=== PATIENT | female | born 1945 | race Caucasian/White ===

== ENCOUNTER 2019-12-31 10:30 | Inpatient (IN) | payer MEDICARE ==
[~2019-12-31] VITALS: Ht 157.5 cm; Wt 114.0 kg
[2019-12-31 10:53] LABS: BASOPHILS # (AUTO) 0.1 X10'3 (0-0.2); BASOPHILS % (AUTO) 0.5 % (0-1); EOSINOPHILS # (AUTO) 0.2 X10'3 (0-0.9); EOSINOPHILS % (AUTO) 2.3 % (0-6); HEMATOCRIT 39.5 % (35.0-45.0); HEMOGLOBIN 13.3 g/dl (12.0-16.0); LYMPHOCYTES # (AUTO) 2.8 X10'3 (1.1-4.8); LYMPHOCYTES % (AUTO) 27.2 % (21-51); MEAN CORPUSCULAR HGB CONC 33.6 g/dL (33.0-36.5); MEAN CORPUSCULAR VOLUME 89.2 FL (78-98); MEAN PLATELET VOLUME 8.7 FL (7.4-10.4); MONOCYTES # (AUTO) 0.6 X10'3 (0-0.9); MONOCYTES % (AUTO) 6.1 % (2-12); NEUTROPHILS # (AUTO) 6.7 X10'3 (1.8-7.7); NEUTROPHILS % (AUTO) 63.9 % (42-75); PLATELET COUNT 236 X10'3 (140-440); RED BLOOD COUNT 4.43 X10'6 (4.20-5.60); RED CELL DISTRIBUTION WIDTH 12.8 % (11.5-14.5); WHITE BLOOD COUNT 10.4 X10'3 (4.5-11.0)
[2019-12-31 11:03] LABS: ALANINE AMINOTRANSFERASE 28 U/L (12-78); ALBUMIN 3.7 G/DL (3.4-5.0); ALBUMIN/GLOBULIN RATIO 0.9 (1.1-1.5); ALKALINE PHOSPHATASE 68 IU/L (46-116); ANION GAP 9 (8-16); ASPARTATE AMINO TRANSFERASE 21 U/L (10-37); BILIRUBIN,TOTAL 0.3 MG/DL (0.1-1.0); BLOOD UREA NITROGEN 15 MG/DL (7-18); BUN/CREATININE RATIO 16.7 (6.6-38.0); CHLORIDE 104 MMOL/L (99-107); GLUCOSE 109 MG/DL (70-104); POTASSIUM 4.1 MMOL/L (3.5-5.1); SODIUM 140 MMOL/L (135-145); TOTAL PROTEIN 7.9 G/DL (6.4-8.2); eGFR 61 ML/MIN
[2019-12-31] MEDS ORDERED: normal saline 1000ML IV soln IVB ONE (11:10)
[2019-12-31 11:11] LABS: MAGNESIUM 2.2 MG/DL (1.5-2.4)
[2019-12-31] MEDS ORDERED: magnesium hydroxide 30ml (MOM) UD suspension PO PRN (12:10)
[2019-12-31] MEDS ORDERED: potassium CL 10mEq/100ml bag 100 ML IV PRN ×2 (12:10)
[2019-12-31] MEDS ORDERED: HYDROcodone/acetaminophen 10/325mg tab PO PRN (12:10)
[2019-12-31] MEDS ORDERED: magnesium 2GM in 50ml NS 50 ML IV PRN (12:10)
[2019-12-31] MEDS ORDERED: potassium Cl 20 mEq SR tablet PO PRN ×2 (12:10)
[2019-12-31] MEDS ORDERED: mag hydrox/Alum hydrox/simeth 30ml oral suspension PO PRN (12:10)
[2019-12-31] MEDS ORDERED: HYDROmorphone inj. 0.5 MG/0.5 ML DISP.SYRIN IV PRN (12:10)
[2019-12-31] MEDS ORDERED: acetaminophen 325mg tablet PO PRN ×2 (12:10)
[2019-12-31] MEDS ORDERED: ondansetron/PF 4mg/2ml inj IV PRN (12:10)
[2019-12-31] MEDS ORDERED: HYDROmorphone 1 mg/ml syringe IV PRN (12:10)
[2019-12-31] MEDS ORDERED: magnesium Cl slow-release 64mg tablet PO PRN (12:10)
[2019-12-31] MEDS ORDERED: magnesium 4gm in 100ml NS 100 ML IV PRN (12:10)
[2019-12-31] MEDS ORDERED: MULT-384 PO (12:52)
[2019-12-31] MEDS ORDERED: HYDR-4383 PO (12:52)
[2019-12-31] MEDS: normal saline 1000ml 1,000 ML IV SCH (13:16)
--- NOTE | 2019-12-31 13:18 | NUR ---
pt resting comfortably, ns started at 100ml/hr, pt requested food will get her a snack.
--- NOTE | 2019-12-31 18:21 | NUR ---
Problems reprioritized. Patient report given, questions answered & plan of care reviewed with HUSEYIN Au.
[2019-12-31 19:00] VITALS: BP 155/72
[2019-12-31 20:00] VITALS: BP_SYST 106; BP_SYST 123; BP_SYST 96; BP_DIAS 40; BP_DIAS 52; BP_DIAS 60
[2019-12-31] MEDS: K and/or MAG REPLACEMENT MC SCH (20:00)
[2019-12-31 23:00] VITALS: BP 106/52
[2020-01-01] VITALS (7 sets, daily range): BP systolic 131–172; BP diastolic 63–90
[2020-01-01] MEDS: HYDROcodone/acetaminophen 5mg/325mg tablet PO PRN ×3 (05:22→20:45)
--- NOTE | 2020-01-01 06:25 | NUR ---
Patient in room MED 314. I have received report from HUSEYIN Au and had the opportunity to ask questions and assume patient care.
[2020-01-01 06:58] LABS: HEMATOCRIT 36.9 % (35.0-45.0); HEMOGLOBIN 12.3 g/dl (12.0-16.0); MEAN CORPUSCULAR HEMOGLOBIN 29.4 PG (27.0-31.0); MEAN CORPUSCULAR HGB CONC 33.4 g/dL (33.0-36.5); MEAN PLATELET VOLUME 9.2 FL (7.4-10.4); PLATELET COUNT 214 X10'3 (140-440); RED CELL DISTRIBUTION WIDTH 12.8 % (11.5-14.5)
[2020-01-01] MEDS: levoTHYROXINE 25mcg tablet PO SCH ×2 (07:00→09:33)
[2020-01-01 07:10] LABS: ALBUMIN 3.3 G/DL (3.4-5.0); ANION GAP 7 (8-16); BLOOD UREA NITROGEN 16 MG/DL (7-18); BUN/CREATININE RATIO 18.4 (6.6-38.0); CALCIUM 8.7 MG/DL (8.5-10.1); CHLORIDE 108 MMOL/L (99-107); CHOL/HDL RATIO 5.1 (0.00-4.99); CHOLESTEROL 223 MG/DL (0-200); CREATININE 0.87 MG/DL (0.40-0.90); GLUCOSE 114 MG/DL (70-104); HDL CHOLESTEROL 44 MG/DL (35-60); LDL CHOLESTEROL 135 MG/DL (50-100); MAGNESIUM 2.1 MG/DL (1.5-2.4); POTASSIUM 3.7 MMOL/L (3.5-5.1); SODIUM 142 MMOL/L (135-145); TOTAL CARBON DIOXIDE 27.4 MMOL/L (24-32); TRIGLYCERIDES 249 MG/DL (20-135); eGFR 63 ML/MIN
[2020-01-01] MEDS: K and/or MAG REPLACEMENT MC SCH ×2 (08:00→20:00)
--- NOTE | 2020-01-01 08:54 | NUR ---
PAGER ID: [phone] MESSAGE: steve 314. ptCarol. robbi Jiménez would like to discuss her DNR status with you. is interested in being full code. Melissa [id number]
[2020-01-01] MEDS: atorvastatin 20mg tablet PO SCH (08:56)
[2020-01-01] MEDS: normal saline 1000ml 1,000 ML IV SCH ×3 (08:57→20:50)
[2020-01-01] MEDS: enoxaparin 40mg/0.4ml syringe SQ SCH (08:57)
[2020-01-01 09:21] LABS: PARTIAL THROMBOPLASTIN TIME 24 SECONDS (22-32)
--- NOTE | 2020-01-01 11:44 | NUR ---
DR. GALLOWAY CALLED: NEW ORDER RECEIVED - CAROTIDS STAT, TIKI TO EVALUATE FOR POSSIBLE TILT TABLE TEST TODAY 12/31
--- NOTE | 2020-01-01 11:44 | NUR ---
WASH TANK TENDER PAGED: [phone]: ANGELINA - RAEGAN CAROTID US
--- NOTE | 2020-01-01 11:49 | NUR ---
DR. GALLOWAY PAGED: PAGER ID: [phone] MESSAGE: [phone]: ANGELINA - CAROTIDS ALREADY DONE, NO PHYSICIAN REPORT YET NURSE DARNELL 9650
--- NOTE | 2020-01-01 12:00 | NUR ---
PATIENT AMBULATED AROUND UNIT. HR DID DECREASE TO MID-40s TO LOW-50s. PATIENT DENIES BLACKOUT VISION, HOWEVER C/O SLIGHT DIZZINESS. GAIT STEADY, POSTURE STRAIGHT, NO NEED FOR WALKER OR CANE AT THIS TIME. Addendum: 01/02/20 at 0794 by Camille Bobby RN Amended: Links added.
--- NOTE | 2020-01-01 12:18 | NUR ---
Called Cardiac rehab and they are unavailable for tilt table until Saturday01/05/2020
--- NOTE | 2020-01-01 12:20 | NUR ---
dr. Thakkar called back: new order received - alert Dr. Batista about unavailable tilt table, possible workup outpatient?
--- NOTE | 2020-01-01 12:20 | NUR ---
Dr. yung paged: PAGER ID: [phone] MESSAGE: [phone]: ANGELINA: cardiac rehab unable to do tilt table until Thursday 01/04 :( nurse Cindy [id number]
--- NOTE | 2020-01-01 13:23 | NUR ---
PATIENT AMBULATED AROUND THE UNIT X600 FT. NO VISUALIZED SYNCOPAL EVENTS, PATIENTS HR DOES BECOME BRADYCARDIC WITH ACTIVITY, LOWEST ABOUT 46 BPM PATIENT HAS CONCERNS ABOUT DISCHARGING WITH ORDERS TO FOLLOW-UP WITH CARDIOLOGY FOR EVENT MONITOR AND TILT TABLE TESTING. C[facility] REH[facility] ONLY AVAILABLE FOR INHOSPITAL TILT TABLE ON SATURDAY/THURSDAYS. PATIENT WANTS TO TALK WITH FINANCIAL COUNCELLING TO FIND OUT HER GIE-OC-QIZKRN COST IF SHE DECIDES TO STAY TO SATURDAY TO HAVE TILT TABLE DONE THIS ADMISSION.
--- NOTE | 2020-01-01 13:29 | NUR ---
MESSAGE LEFT WITH FINANCIAL COUNSELLING TO TALK WITH PATIENT JULIANE.
--- NOTE | 2020-01-01 13:31 | NUR ---
CASE MANAGEMENT CALLED, SITUATION EXPLAINED ABOUT RESERVATIONS FOR DISCHARGE AND CARDIAC FOLLOW-UP OUTPATIENT. PATIENT AFRAID OF HAVING A SYNCOPAL EPISODE WHILE DRIVING OR SHOWING A RESIDENCE (PATIENT ACTIVELY WORKS A REALATOR). LACI, DISTRICT PLANT ENGINEER, SAID SHE WILL BE UP SHORTLY TO TALK WITH PATIENT.
--- NOTE | 2020-01-01 13:47 | NUR ---
dr. worrell paged: PAGER ID: [phone] MESSAGE: [phone]: ANGELINA - ambulated without syncope, only slight dizziness. wants to D/C and follow-up with cardiology outpt. nurse Cindy [id number]
[2020-01-01] MEDS ORDERED: LEVO25TA7 PO (13:52)
[2020-01-01] MEDS ORDERED: ATOR40TA PO (13:52)
--- NOTE | 2020-01-01 17:04 | NUR ---
DR. THORNTON @ BEDSIDE NEW ORDERS RECEIVED: CONSENT FOR BI-VENTICULAR PACEMAKER, [facility], TIME TO FOLLOW [facility] C[facility].
--- NOTE | 2020-01-01 17:36 | NUR ---
PRINTED CIRCUIT BOARD PCB DESIGNER NOTIFIED OF PPM INSERTION SCHEDULED FOR Saturday01/02/2020 TO FOLLOW [facility] C[facility] CASE IN THE AM
--- NOTE | 2020-01-01 17:37 | NUR ---
[facility] CALLED - INFORMED OF PPM INSERTION SCHEDULED FOR Saturday01/02/2020 TO FOLLOW [facility] CATH CASE IN THE AM, INFORMED REP TO CALL HOUSE SUP IN AM FOR MORE DEFINITE TIME FOR PROCEDURE
--- NOTE | 2020-01-01 18:20 | NUR ---
Patient in room MED 314. I have received report from NARENDRA FONTANEZ and had the opportunity to ask questions and assume patient care.
[2020-01-01] MEDS: temazepam 15mg capsule PO PRN (20:48)
[2020-01-02] VITALS (13 sets, daily range): BP systolic 124–177; BP diastolic 43–83
[2020-01-02] MEDS: normal saline 1000ml 1,000 ML IV SCH ×2 (04:40→08:24)
[2020-01-02 05:53] LABS: ALBUMIN 3.6 G/DL (3.4-5.0); ANION GAP 5 (8-16); BLOOD UREA NITROGEN 16 MG/DL (7-18); BUN/CREATININE RATIO 18.4 (6.6-38.0); CALCIUM 8.9 MG/DL (8.5-10.1); CHLORIDE 106 MMOL/L (99-107); CREATININE 0.87 MG/DL (0.40-0.90); GLUCOSE 109 MG/DL (70-104); MAGNESIUM 2.2 MG/DL (1.5-2.4); POTASSIUM 4.3 MMOL/L (3.5-5.1); SODIUM 140 MMOL/L (135-145); TOTAL CARBON DIOXIDE 29.5 MMOL/L (24-32); eGFR 63 ML/MIN
--- NOTE | 2020-01-02 05:57 | NUR ---
PAGER ID: [phone] MESSAGE: [phone] BOY ALFARO-VOMITING. GAVE ZOFRAN AT 0302; NAUSEA WORSE, NOT BETTER. SUPPOSED TO BE GETTING PACEMAKER THIS AM. CAN WE GET AN ORDER FOR REGLAN? THANKS, JAMEEL RUTHERFORD (167 character message out of a maximum of 240)
[2020-01-02] MEDS ORDERED: proCHLORperazine 10 MG/2 ml inj IV PRN ×2 (06:00→06:10)
--- NOTE | 2020-01-02 06:05 | NUR ---
PAGER ID: [phone] MESSAGE: BOY GUILLERMO-COMPHECTOR ORDER FOR 2 MG IV Q6 IS PEDS ORDER-PHARMACY CALLED AND ONLY OFFER IN 5MG OR 10 MG. PLEASE CALL BACK FOR NEW ORDER. TOMASZ [id number]
[2020-01-02 06:06] LABS: HEMATOCRIT 38.1 % (35.0-45.0); HEMOGLOBIN 12.7 g/dl (12.0-16.0); MEAN CORPUSCULAR HEMOGLOBIN 29.3 PG (27.0-31.0); MEAN CORPUSCULAR HGB CONC 33.5 g/dL (33.0-36.5); MEAN CORPUSCULAR VOLUME 87.6 FL (78-98); MEAN PLATELET VOLUME 8.9 FL (7.4-10.4); PLATELET COUNT 221 X10'3 (140-440); RED BLOOD COUNT 4.35 X10'6 (4.20-5.60); RED CELL DISTRIBUTION WIDTH 12.8 % (11.5-14.5); WHITE BLOOD COUNT 10.3 X10'3 (4.5-11.0)
--- NOTE | 2020-01-02 06:32 | NUR ---
Patient in room MED 314. I have received report from HUSEYIN Bird and had the opportunity to ask questions and assume patient care.
--- NOTE | 2020-01-02 06:35 | NUR ---
Problems reprioritized. Patient report given, questions answered & plan of care reviewed with NARENDRA FONTANEZ.
[2020-01-02] MEDS: enoxaparin 40mg/0.4ml syringe SQ SCH (08:00)
[2020-01-02] MEDS: atorvastatin 20mg tablet PO SCH (08:00)
[2020-01-02] MEDS: levoTHYROXINE 25mcg tablet PO SCH (08:16)
[2020-01-02] MEDS: HYDROcodone/acetaminophen 5mg/325mg tablet PO PRN (08:19)
[2020-01-02] MEDS: K and/or MAG REPLACEMENT MC SCH ×2 (08:24→20:00)
[2020-01-02] MEDS ORDERED: ceFAZolin 1GM/D5W- ADD-VANTAGE 50 ML IV SCH (11:00)
[2020-01-02] MEDS ORDERED: fentaNYL/PF 50MCG/1 ML 2ML syringe ONE (12:09)
[2020-01-02] MEDS ORDERED: ceFAZolin 1000mg inj ONE (12:09)
[2020-01-02] MEDS ORDERED: LIDOcaine 1% W/epiNEPHrine 1:100,000 20ml vial ONE (12:09)
[2020-01-02] MEDS ORDERED: midazolam 2 mg/2 ml injection ONE ×2 (12:09→13:21)
[2020-01-02] MEDS ORDERED: verapamil 2.5 mg/ml inj IV ONE (14:16)
[2020-01-02] MEDS ORDERED: vancomycin/NS 1 GM ADD-VANTAGE 250 ML X 1 DOSE IV ONE (17:00)
--- NOTE | 2020-01-02 18:21 | NUR ---
Patient in room MED 314. I have received report from Melissa FONTANEZ and had the opportunity to ask questions and assume patient care.
--- NOTE | 2020-01-02 18:58 | NUR ---
TRANSFERRED PT TO WHEELCHAIR FOR 2 VIEW XRAY, CALLING DOWN TO ER XRAY, NO ANSWER.
--- NOTE | 2020-01-02 19:04 | NUR ---
Problems reprioritized. Patient report given, questions answered & plan of care reviewed with HUSEYIN Bird.
--- NOTE | 2020-01-02 19:05 | NUR ---
HUSEYIN was unaware that the machine was no longer taking blood pressures on the pt. starting at 1600. they were restarted as soon as this was discovered. Addendum: 01/02/20 at 1907 by Priscilla Blake RN Amended: Links added.
[2020-01-02] MEDS: temazepam 15mg capsule PO PRN (20:10)
[2020-01-02] MEDS ORDERED: atorvastatin 20mg tablet PO SCH (21:00)
[2020-01-03] MEDS: normal saline 1000ml 1,000 ML IV SCH (00:10)
[2020-01-03 02:00] VITALS: BP 152/75
[2020-01-03 02:24] VITALS: BP 131/77
[2020-01-03] MEDS: HYDROcodone/acetaminophen 5mg/325mg tablet PO PRN ×2 (02:29→08:54)
--- NOTE | 2020-01-03 02:39 | NUR ---
Patient refused orthosatic vital signs, wanted to sleep. only charted supine vital signs at 1999. Leanna FONTANEZ Addendum: 01/03/20 at 0256 by Marge Au RN wrong patient
[2020-01-03 05:23] LABS: ALBUMIN 3.2 G/DL (3.4-5.0); ANION GAP 5 (8-16); BLOOD UREA NITROGEN 13 MG/DL (7-18); BUN/CREATININE RATIO 14.4 (6.6-38.0); CALCIUM 8.7 MG/DL (8.5-10.1); CHLORIDE 107 MMOL/L (99-107); GLUCOSE 98 MG/DL (70-104); MAGNESIUM 2.2 MG/DL (1.5-2.4); POTASSIUM 4.4 MMOL/L (3.5-5.1); SODIUM 142 MMOL/L (135-145); eGFR 61 ML/MIN
[2020-01-03 05:36] LABS: HEMATOCRIT 36.6 % (35.0-45.0); HEMOGLOBIN 12.2 g/dl (12.0-16.0); MEAN CORPUSCULAR HEMOGLOBIN 29.2 PG (27.0-31.0); MEAN CORPUSCULAR HGB CONC 33.3 g/dL (33.0-36.5); MEAN CORPUSCULAR VOLUME 87.8 FL (78-98); MEAN PLATELET VOLUME 8.9 FL (7.4-10.4); PLATELET COUNT 209 X10'3 (140-440); RED BLOOD COUNT 4.17 X10'6 (4.20-5.60); RED CELL DISTRIBUTION WIDTH 12.7 % (11.5-14.5); WHITE BLOOD COUNT 10.3 X10'3 (4.5-11.0)
--- NOTE | 2020-01-03 06:00 | NUR ---
Patient in room MED 314. I have received report from may Bird and had the opportunity to ask questions and assume patient care.
--- NOTE | 2020-01-03 06:15 | NUR ---
Patient in room MED 314. I have received report from Karmen FONTANEZ and had the opportunity to ask questions and assume patient care.
[2020-01-03] MEDS: levoTHYROXINE 25mcg tablet PO SCH (08:40)
[2020-01-03] MEDS: enoxaparin 40mg/0.4ml syringe SQ SCH (08:40)
[2020-01-03] MEDS: K and/or MAG REPLACEMENT MC SCH (08:46)
[2020-01-03] MEDS ORDERED: CEPH500C5 PO (10:52)
[2020-01-03] MEDS ORDERED: HYDR-4353 PO (10:52)
--- NOTE | 2020-01-03 13:55 | NUR ---
reviewed all discharge instructions,including need for f/u appts with and PMD,all post pacer instructions, card and book,prescriptions phone to eligha @ [place] [facility] dc'd right fa,site abiliopt dc'd via w/c with all belongings
== END 2020-01-03 13:55 | disposition home or self-care (01) | DRG 243 ==
LOC: ER 10:30 → ED HOLD 12:10 → MED 3N 15:45 → OBSVTOIN 01-01 08:20
PROVIDERS: ADMIT Family Medicine; ATTEND Family Medicine
PROC: 4A10X4Z Monitoring of Central Nervous Electrical Activity, External Approach (ICD-10-PCS; 2020-01-01)
PROC: 0JH606Z Insertion of Pacemaker, Dual Chamber into Chest Subcutaneous Tissue and Fascia, Open Approach (ICD-10-PCS; principal; 2020-01-02)
PROC: 02H63JZ Insertion of Pacemaker Lead into Right Atrium, Percutaneous Approach (ICD-10-PCS; 2020-01-02)
PROC: 02HK3JZ Insertion of Pacemaker Lead into Right Ventricle, Percutaneous Approach (ICD-10-PCS; 2020-01-02)
DX: I44.1 Atrioventricular block, second degree (principal); Z68.42 Body mass index [BMI] 45.0-49.9, adult; E03.9 Hypothyroidism, unspecified; E78.5 Hyperlipidemia, unspecified; J45.909 Unspecified asthma, uncomplicated; Z66 Do not resuscitate; Z87.891 Personal history of nicotine dependence; Z90.710 Acquired absence of both cervix and uterus; E66.9 Obesity, unspecified
CPT/HCPCS: 33208; 36415; 70450; 71045; 71046; 80048; 80053; 80061; 83735; 83880; 84443; 84484; 85025; 85027; 85610; 85730; 87081; 93005; 93306; 93880; 95816; 96374; 97161; 97530; 99152; 99153; 99285; A4565; A6449; C1785; C1894; C1898; G0378; J0690; J0780; J1650; J2250; J2405; J3010; J3370; J7030

== ENCOUNTER 2022-07-31 15:55 | Emergency (ER) | payer MEDICARE, SELFPAY ==
[~2022-07-31] VITALS: Ht 157.5 cm; Wt 69.1 kg
[~2022-07-31 15:55] MED LIST: HYDR-4383 PO; LEVO25TA7 PO; MULT-384 PO
[2022-07-31 16:20] LABS: BASOPHILS % (AUTO) 0.2 % (0-1); EOSINOPHILS # (AUTO) 0.1 X10'3 (0-0.9); EOSINOPHILS % (AUTO) 1.7 % (0-6); HEMATOCRIT 37.5 % (35.0-45.0); HEMOGLOBIN 12.4 g/dl (12.0-16.0); LYMPHOCYTES # (AUTO) 2.1 X10'3 (1.1-4.8); LYMPHOCYTES % (AUTO) 23.8 % (21-51); MEAN CORPUSCULAR HGB CONC 33.1 g/dL (33.0-36.5); MEAN CORPUSCULAR VOLUME 84.5 FL (78-98); MEAN PLATELET VOLUME 7.9 FL (7.4-10.4); MONOCYTES # (AUTO) 0.9 X10'3 (0-0.9); MONOCYTES % (AUTO) 10.2 % (2-12); NEUTROPHILS # (AUTO) 5.7 X10'3 (1.8-7.7); NEUTROPHILS % (AUTO) 64.1 % (42-75); PLATELET COUNT 243 X10'3 (140-440); RED BLOOD COUNT 4.43 X10'6 (4.20-5.60); RED CELL DISTRIBUTION WIDTH 13.6 % (11.5-14.5); WHITE BLOOD COUNT 8.8 X10'3 (4.5-11.0)
[2022-07-31 16:26] VITALS: BP 128/59
[2022-07-31 16:36] LABS: ALANINE AMINOTRANSFERASE 16 U/L (12-78); ALBUMIN 3.6 G/DL (3.4-5.0); ALBUMIN/GLOBULIN RATIO 0.8 (1.1-1.5); ALKALINE PHOSPHATASE 93 IU/L (46-116); ANION GAP 6 (8-16); ASPARTATE AMINO TRANSFERASE 18 U/L (10-37); BILIRUBIN,TOTAL 0.3 MG/DL (0.1-1.0); BLOOD UREA NITROGEN 19 MG/DL (7-18); BUN/CREATININE RATIO 20.7 (6.6-38.0); CALCIUM 9.3 MG/DL (8.5-10.1); CHLORIDE 104 MMOL/L (99-107); CREATININE 0.92 MG/DL (0.40-0.90); GLUCOSE 124 MG/DL (70-104); POTASSIUM 4.3 MMOL/L (3.5-5.1); SODIUM 139 MMOL/L (135-145); TOTAL CARBON DIOXIDE 29.1 MMOL/L (24-32); eGFR 59 ML/MIN
[2022-07-31 16:43] LABS: MAGNESIUM 2.4 MG/DL (1.5-2.4)
[2022-07-31] MEDS ORDERED: BUDE180A INH (19:20)
[2022-07-31] MEDS ORDERED: ALBU6.7H14 INH (19:20)
[2022-07-31] MEDS ORDERED: PRED20TA PO (19:20)
== END 2022-07-31 19:38 | disposition home or self-care (01) ==
LOC: ER 15:55
DX: R06.02 Shortness of breath (principal); Z90.710 Acquired absence of both cervix and uterus; Z87.891 Personal history of nicotine dependence
CPT/HCPCS: 36415; 71045; 80053; 83735; 83880; 84484; 85025; 93005; 99285

== ENCOUNTER 2024-08-27 17:40 | Inpatient (IN) | payer MEDICARE, MEDICAID ==
[~2024-08-27] VITALS: Ht 157.5 cm; Wt 72.0 kg
[~2024-08-27 17:40] MED LIST changes: +ALBU6.7H14 INH; +BUDE180A5 INH
[2024-08-27 18:34] LABS: BASOPHILS % (AUTO) 0.3 % (0-1); EOSINOPHILS # (AUTO) 0.1 X10'3 (0-0.9); EOSINOPHILS % (AUTO) 1.3 % (0-6); HEMATOCRIT 38.9 % (35.0-45.0); HEMOGLOBIN 12.7 g/dl (12.0-16.0); LYMPHOCYTES # (AUTO) 3.1 X10'3 (1.1-4.8); LYMPHOCYTES % (AUTO) 27.7 % (21-51); MEAN CORPUSCULAR HEMOGLOBIN 28.3 PG (27.0-31.0); MEAN CORPUSCULAR HGB CONC 32.6 g/dL (33.0-36.5); MEAN CORPUSCULAR VOLUME 86.9 FL (78-98); MEAN PLATELET VOLUME 8.5 FL (7.4-10.4); MONOCYTES # (AUTO) 0.8 X10'3 (0-0.9); MONOCYTES % (AUTO) 7.2 % (2-12); NEUTROPHILS # (AUTO) 7.1 X10'3 (1.8-7.7); NEUTROPHILS % (AUTO) 63.5 % (42-75); PLATELET COUNT 257 X10'3 (140-440); RED BLOOD COUNT 4.48 X10'6 (4.20-5.60); WHITE BLOOD COUNT 11.2 X10'3 (4.5-11.0)
[2024-08-27 18:38] LABS: ANION GAP 8 (8-16); BLOOD UREA NITROGEN 20 MG/DL (7-18); BUN/CREATININE RATIO 21.1 (10.0-20.0); CALCIUM 9.2 MG/DL (8.5-10.1); CHLORIDE 103 MMOL/L (99-107); CREATININE 0.95 MG/DL (0.40-0.90); GLUCOSE 94 MG/DL (70-104); POTASSIUM 4.1 MMOL/L (3.5-5.1); SODIUM 140 MMOL/L (135-145); TOTAL CARBON DIOXIDE 29.4 MMOL/L (24-32); eCRCL 37 ML/MIN; eGFR 56 ML/MIN
[2024-08-27 18:52] LABS: APTT 22 SECONDS (22-32)
[2024-08-27 19:40] VITALS: RESP 22; O2SAT 97
[2024-08-27] MEDS ORDERED: DEXT10CA19 PO (19:54)
[2024-08-27] MEDS ORDERED: LEVO75TA7 PO (19:54)
[2024-08-27] MEDS ORDERED: ROSU5TAB51 PO (19:55)
[2024-08-27] MEDS: aspirin 325mg tablet PO ONE (20:06)
[2024-08-27] MEDS: clopidogrel 300mg tablet PO ONE (20:07)
[2024-08-27] MEDS ORDERED: docusate sod 100mg capsule PO PRN (20:25)
[2024-08-27] MEDS ORDERED: bisacodyl 10mg suppository rectal RC PRN (20:25)
[2024-08-27] MEDS ORDERED: acetaminophen 325mg tablet PO PRN ×2 (20:25)
[2024-08-27] MEDS ORDERED: magnesium hydroxide 30ml (MOM) UD suspension PO PRN (20:25)
[2024-08-27] MEDS ORDERED: hydrALAZINE 20mg/ml inj. IV PRN (20:25)
[2024-08-27] MEDS ORDERED: iohexol 350MG/ML 100ml bottle IV ONE (20:39)
[2024-08-27] MEDS: PERFLUTREN PROTEIN-A MICROSPHR (Optison) 0.22 MG/ML 3ML VIAL IV ONE (20:42)
[2024-08-27] MEDS: heparin, porcine 5000 units/ml vial SQ SCH (21:09)
[2024-08-27] MEDS: normal saline 1000ml 1,000 ML IV SCH (21:10)
[2024-08-27 21:52] LABS: BILIRUBIN,URINE NEGATIVE (Neg); CLARITY,URINE CLEAR (Clear); COLOR,URINE YELLOW (Yellow); GLUCOSE, URINE NEGATIVE (Neg); KETONES,URINE NEGATIVE (Neg); LEUKOCYTE ESTERASE ,URINE SMALL (Neg); NITRITES, URINE NEGATIVE (Neg); OCCULT BLOOD,URINE NEGATIVE (Neg); PH,URINE 5.5 (4.8-8.0); PROTEIN,URINE NEGATIVE (Neg); UROBILINOGEN,URINE 0.2 E.U/dL (0.2-1.0)
[2024-08-27 22:01] LABS: UA COLLECTION TYPE CLN CATCH MIDSTREAM
[2024-08-27 22:04] LABS: BACTERIA,URINE 1+ /HPF (Neg); MUCUS STRANDS FEW /LPF (Neg); RBC,URINE NONE SEEN /HPF (0-2); SQUAMOUS EPITHELIAL CELL,UR MODERATE /LPF (FEW)
[2024-08-27 22:15] VITALS: BP 169/74; PULSE 79; RESP 16; TEMP 97.7; O2SAT 96
[2024-08-28 04:00] VITALS: BP 147/67; PULSE 83; RESP 16; TEMP 98; O2SAT 97
[2024-08-28 05:00] VITALS: BP 150/66; PULSE 78; RESP 16; TEMP 98; O2SAT 96
[2024-08-28 07:15] LABS: BASOPHILS % (AUTO) 0.4 % (0-1); EOSINOPHILS # (AUTO) 0.2 X10'3 (0-0.9); EOSINOPHILS % (AUTO) 2.3 % (0-6); HEMATOCRIT 36.5 % (35.0-45.0); HEMOGLOBIN 12.2 g/dl (12.0-16.0); LYMPHOCYTES # (AUTO) 2.4 X10'3 (1.1-4.8); MEAN CORPUSCULAR HEMOGLOBIN 28.7 PG (27.0-31.0); MEAN CORPUSCULAR HGB CONC 33.4 g/dL (33.0-36.5); MEAN PLATELET VOLUME 8.5 FL (7.4-10.4); MONOCYTES # (AUTO) 0.7 X10'3 (0-0.9); MONOCYTES % (AUTO) 8.9 % (2-12); NEUTROPHILS # (AUTO) 4.8 X10'3 (1.8-7.7); NEUTROPHILS % (AUTO) 58.4 % (42-75); PLATELET COUNT 225 X10'3 (140-440); RED BLOOD COUNT 4.25 X10'6 (4.20-5.60); RED CELL DISTRIBUTION WIDTH 13.1 % (11.5-14.5); WHITE BLOOD COUNT 8.1 X10'3 (4.5-11.0)
[2024-08-28] MEDS: clopidogrel 75mg tablet PO SCH (07:33)
[2024-08-28] MEDS: aspirin 81mg, enteric-coated 1 TAB TABLET.DR PO SCH (07:33)
[2024-08-28] MEDS: atorvastatin 20mg tablet PO SCH (07:33)
[2024-08-28 07:52] LABS: ALANINE AMINOTRANSFERASE 19 U/L (12-78); ALBUMIN 3.3 G/DL (3.4-5.0); ALBUMIN/GLOBULIN RATIO 0.8 (1.1-1.5); ALKALINE PHOSPHATASE 77 IU/L (46-116); ANION GAP 6 (8-16); ASPARTATE AMINO TRANSFERASE 18 U/L (10-37); BILIRUBIN,TOTAL 0.2 MG/DL (0.1-1.0); BLOOD UREA NITROGEN 16 MG/DL (7-18); BUN/CREATININE RATIO 21.1 (10.0-20.0); CALCIUM 8.6 MG/DL (8.5-10.1); CHLORIDE 106 MMOL/L (99-107); CHOL/HDL RATIO 4.5 (0.00-4.99); CHOLESTEROL 210 MG/DL (0-200); CREATININE 0.76 MG/DL (0.40-0.90); GLUCOSE 93 MG/DL (70-104); HDL CHOLESTEROL 47 MG/DL (35-60); LDL CHOLESTEROL 124 MG/DL (50-100); POTASSIUM 3.9 MMOL/L (3.5-5.1); SODIUM 141 MMOL/L (135-145); THYROID STIMULATING HORMONE 7.47 ulU/ml (0.34-4.50); TOTAL CARBON DIOXIDE 29.3 MMOL/L (24-32); TOTAL PROTEIN 7.3 G/DL (6.4-8.2); TRIGLYCERIDES 251 MG/DL (20-135); eCRCL 46 ML/MIN; eGFR 73 ML/MIN
[2024-08-28 10:00] VITALS: BP 134/66; PULSE 80; RESP 19; TEMP 98; O2SAT 95
[2024-08-28] MEDS: CefTRIAXone/D5W-Rocephin 1gm 50 ML IV SCH (10:39)
[2024-08-28] MEDS: diazepam inj 5 MG/ML inj. IV PRN (14:58)
[2024-08-28 18:00] VITALS: BP 159/74; PULSE 88; RESP 16; TEMP 98.5; O2SAT 95
[2024-08-28 20:00] VITALS: RESP 16; O2SAT 95
[2024-08-28 22:00] VITALS: BP 149/58; PULSE 71; RESP 17; TEMP 97.2; O2SAT 96
[2024-08-29 02:00] VITALS: BP 135/71; PULSE 91; RESP 18; TEMP 97.7; O2SAT 97
[2024-08-29 05:37] LABS: BASOPHILS % (AUTO) 0.4 % (0-1); EOSINOPHILS # (AUTO) 0.2 X10'3 (0-0.9); EOSINOPHILS % (AUTO) 2.1 % (0-6); HEMATOCRIT 37.7 % (35.0-45.0); HEMOGLOBIN 12.7 g/dl (12.0-16.0); LYMPHOCYTES # (AUTO) 2.1 X10'3 (1.1-4.8); LYMPHOCYTES % (AUTO) 26.1 % (21-51); MEAN CORPUSCULAR HGB CONC 33.7 g/dL (33.0-36.5); MEAN PLATELET VOLUME 8.7 FL (7.4-10.4); MONOCYTES # (AUTO) 0.6 X10'3 (0-0.9); NEUTROPHILS % (AUTO) 63.4 % (42-75); PLATELET COUNT 229 X10'3 (140-440); RED BLOOD COUNT 4.39 X10'6 (4.20-5.60); RED CELL DISTRIBUTION WIDTH 13.1 % (11.5-14.5); WHITE BLOOD COUNT 7.9 X10'3 (4.5-11.0)
[2024-08-29 06:00] VITALS: BP 166/73; PULSE 80; RESP 17; TEMP 97; O2SAT 97
[2024-08-29 06:17] LABS: ALANINE AMINOTRANSFERASE 25 U/L (12-78); ALBUMIN 3.4 G/DL (3.4-5.0); ALBUMIN/GLOBULIN RATIO 0.9 (1.1-1.5); ALKALINE PHOSPHATASE 72 IU/L (46-116); ANION GAP 9 (8-16); ASPARTATE AMINO TRANSFERASE 17 U/L (10-37); BILIRUBIN,TOTAL 0.3 MG/DL (0.1-1.0); BLOOD UREA NITROGEN 18 MG/DL (7-18); BUN/CREATININE RATIO 23.1 (10.0-20.0); CALCIUM 8.8 MG/DL (8.5-10.1); CHLORIDE 107 MMOL/L (99-107); CREATININE 0.78 MG/DL (0.40-0.90); GLUCOSE 94 MG/DL (70-104); POTASSIUM 4.1 MMOL/L (3.5-5.1); SODIUM 143 MMOL/L (135-145); TOTAL CARBON DIOXIDE 27.3 MMOL/L (24-32); TOTAL PROTEIN 7.4 G/DL (6.4-8.2); eCRCL 45 ML/MIN; eGFR 71 ML/MIN
[2024-08-29] MEDS: atorvastatin 20mg tablet PO SCH (07:38)
[2024-08-29] MEDS: levoTHYROXINE 75mcg tablet PO SCH (07:38)
[2024-08-29 08:00] VITALS: RESP 16; O2SAT 95
[2024-08-29 10:00] VITALS: BP 124/46; PULSE 91; RESP 16; TEMP 98.1; O2SAT 96
[2024-08-29] MEDS ORDERED: AMLO5TAB16 PO (11:26)
[2024-08-29] MEDS ORDERED: ASPI-1071 PO (11:26)
[2024-08-29] MEDS ORDERED: ATOR20TA66 PO (11:26)
[2024-08-29] MEDS ORDERED: LACT1CAP26 PO (11:26)
[2024-08-29] MEDS ORDERED: CEFD300C3 PO (11:26)
[2024-08-29] MEDS ORDERED: CLOP75TA34 PO (11:26)
== END 2024-08-29 13:10 | disposition home health service (06) | DRG 66 ==
LOC: ER 17:40 → ED HOLD 20:09 → ORTHO 4S 22:30
PROVIDERS: ADMIT Surgery; ATTEND Family Medicine
PROC: B3251ZZ Computerized Tomography (CT Scan) of Bilateral Common Carotid Arteries using Low Osmolar Contrast (ICD-10-PCS; principal; 2024-08-27)
PROC: B32G1ZZ Computerized Tomography (CT Scan) of Bilateral Vertebral Arteries using Low Osmolar Contrast (ICD-10-PCS; 2024-08-27)
PROC: B32R1ZZ Computerized Tomography (CT Scan) of Intracranial Arteries using Low Osmolar Contrast (ICD-10-PCS; 2024-08-27)
PROC: B3281ZZ Computerized Tomography (CT Scan) of Bilateral Internal Carotid Arteries using Low Osmolar Contrast (ICD-10-PCS; 2024-08-27)
DX: I63.511 Cerebral infarction due to unspecified occlusion or stenosis of right middle cerebral artery (principal); J44.9 Chronic obstructive pulmonary disease, unspecified; E03.9 Hypothyroidism, unspecified; E78.5 Hyperlipidemia, unspecified; Z66 Do not resuscitate; D72.829 Elevated white blood cell count, unspecified; Z90.710 Acquired absence of both cervix and uterus; Z95.0 Presence of cardiac pacemaker; Z79.899 Other long term (current) drug therapy; Z87.891 Personal history of nicotine dependence
CPT/HCPCS: 36415; 70450; 70496; 70498; 70551; 71045; 80048; 80053; 80061; 81001; 82948; 83036; 84145; 84439; 84443; 85025; 85610; 85730; 87081; 87088; 92508; 92616; 93005; 93306; 93880; 97110; 97116; 97162; 99291; G0378; J0696; J1644; J3360; J7030; Q9967

== ENCOUNTER 2024-11-24 11:24 | Outpatient (CLI) | payer MEDICARE, MEDICAID ==
[~2024-11-24 11:24] MED LIST changes: -ALBU6.7H14 INH; +AMLO5TAB16 PO; +ASPI-1071 PO; +ATOR20TA66 PO; -BUDE180A5 INH; +CLOP75TA34 PO; +DEXT10CA19 PO; +LACT1CAP26 PO; -LEVO25TA7 PO; +LEVO75TA7 PO
--- NOTE | 2024-11-24 13:13 | RADIOLOGY REPORT ---
EXAM: DI CHEST,TWO VIEWS CLINICAL HISTORY: PACEMAKER- POSSIBLE LEAD MIGRATION COMPARISON: CHEST,TWO VIEWS on DOS: 01/02/20 TECHNIQUE: Frontal and lateral view of the chest was obtained FINDINGS: Lines and Tubes: Cardiac pacemaker projects over left chest wall. Lungs: No focal consolidation. Pleura: No effusion. No pneumothorax. Cardiomediastinal contours: Unremarkable. Atherosclerotic vascular calcifications of the thoracic ao rta are noted. Bones: No acute osseous abnormality. IMPRESSION: No acute cardiopulmonary disease.
== END 2024-11-24 23:59 | disposition home or self-care (01) ==
LOC: RAD 11:24
PROVIDERS: ATTEND Internal Medicine Cardiovascular Disease
DX: I70.0 Atherosclerosis of aorta (principal); Z95.0 Presence of cardiac pacemaker
CPT/HCPCS: 71046